=== PATIENT | male | born 1985 | race Caucasian/White ===

== ENCOUNTER 2018-08-19 14:29 | Emergency (ER) | payer OTHER ==
[2018-08-19 14:49] VITALS: O2SAT 100; BMI 18.6
--- NOTE | 2018-08-19 15:29 | ED PDOC ---
Upper Extremity Pain/Injury Time Seen by Provider: 08/19/18 15:15 Chief Complaint (Nursing): Upper Extremity Problem/Injury Chief Complaint (Provider): Left Hand Pain History Per: Patient History/Exam Limitations: no limitations Onset/Duration Of Symptoms: Days (2x) Current Symptoms Are (Timing): Still Present Quality: "Pain" Additional Complaint(s): 33 year old left hand dominant male presents to the ED for an evaluation of left hand pain. Patient states he hyperextended his left hand onset 2 days. He notes of swelling as well. Denies fever, cough, rash, numbness or tingling. PMD: unknown provider Past Medical History Reviewed: Historical Data, Nursing Documentation, Vital Signs Vital Signs: Last Vital Signs Temp 97 F L 08/19/18 14:49 Pulse 84 08/19/18 14:49 Resp 17 08/19/18 14:49 BP 114/72 08/19/18 14:49 Pulse Ox 100 08/19/18 14:49 - Medical History PMH: No Chronic Diseases - Family History Family History: States: Unknown Family Hx - Home Medications Home Medications: Ambulatory Orders Medication Instructions Recorded RX: Naproxen 375 mg PO Q8 PRN #21 tablet 08/19/18 - Allergies Allergies/Adverse Reactions: Allergies Allergy/AdvReac Type Severity Reaction Status Date / Time No Known Allergies Allergy Verified 08/19/18 15:10 Review of Systems ROS Statement: Except As Marked, All Systems Reviewed And Found Negative Constitutional: Negative for: Fever, Chills Respiratory: Negative for: Cough Musculoskeletal: Positive for: Hand Pain (left) Skin: Negative for: Rash Neurological: Negative for: Weakness, Numbness Physical Exam - Reviewed Nursing Documentation Reviewed: Yes Vital Signs Reviewed: Yes - Physical Exam Appears: Positive for: Well, Non-toxic, No Acute Distress Head Exam: Positive for: ATRAUMATIC, NORMAL INSPECTION, NORMOCEPHALIC Skin: Positive for: Normal Color, Warm, Dry. Negative for: Rash Eye Exam: Positive for: Normal appearance Extremity: Positive for: Tenderness (left hand), Swelling (left hand), Other (negative for snuff box tenderness). Negative for: Deformity Neurologic/Psych: Positive for: Alert, Oriented (x3). Negative for: Motor/Sensory Deficits - ECG O2 Sat by Pulse Oximetry: 100 (RA) Pulse Ox Interpretation: Normal - Progress ED Course And Treament: Dr. Ken Thompson notes patient not in network and recommends f/u with ortho in his network Medical Decision Making Medical Decision Making: Time: 1520 Initial impression: Left hand pain Initial plan: Ibuprofen 600mg Wrist, Left 3 views [rad] Reevaluation Discussed case with Dr. Ramos who would see him Sunday morning for the sugartong splint. ------- Scribe Attestation: Documented by Steve Landin, acting as a scribe for Mary Jo Laws PA-C. Provider Scribe Attestation: All medical record entries made by the Scribe were at my direction and personally dictated by me. I have reviewed the chart and agree that the record accurately reflects my personal performance of the history, physical exam, medical decision making, and the department course for this patient. I have also personally directed, reviewed, and agree with the discharge instructions and disposition. Disposition - Clinical Impression Clinical Impression: Wrist fracture, left - Patient ED Disposition Is Patient to be Admitted: No - Disposition Referrals: [facility] [Outside] Armani Ramos MD [Staff Provider] - Disposition: Routine/Home Disposition Time: 16:08 Condition: FAIR Prescriptions: RX: Naproxen 375 mg PO Q8 PRN #21 tablet PRN Reason: Pain, Moderate (4-7) Instructions: Wrist Fracture (DC) Forms: [facility] ED School/Work Excuse
--- NOTE | 2018-08-19 16:22 | RAD ---
Date of service: 08/19/2018 PROCEDURE: Left Wrist Radiographs. HISTORY: injury COMPARISON: None. FINDINGS: BONES: Impacted, angulated, comminuted intra-articular fracture distal left radius. Adjacent carpal bones unremarkable. JOINTS: Normal. No dislocation. SOFT TISSUES: Normal. OTHER FINDINGS: None. IMPRESSION: Acute fracture distal left radius.
[2018-08-19 17:05] VITALS: BP 122/70; PULSE 78; RESP 18; TEMP 98
== END 2018-08-19 17:01 | disposition home or self-care (01) ==
LOC: H.ER 14:29
DX: S52.592A Other fractures of lower end of left radius, initial encounter for closed fracture (principal); X50.1XXA Overexertion from prolonged static or awkward postures, initial encounter